=== PATIENT | female | born 1995 | race African-American/Black ===

== ENCOUNTER 2020-03-09 18:10 | Emergency (ER) | payer MEDICAID ==
[~2020-03-09] VITALS: Ht 162.6 cm; Wt 97.5 kg
[2020-03-09 18:37] VITALS: BP 108/74
--- NOTE | 2020-03-09 18:40 | NUR ---
ED Nurse Note: Patient walked in to Er c/o left earache with discharge for 1 week. AAO x4, VSS aty this time.
--- NOTE | 2020-03-09 18:45 | Emergency Room Report ---
History of Present Illness General Chief Complaint: Earache Source: Patient Present Illness HPI 24-year-old female presents to the emergency department complaining of 9 out of 10 severity pain and tenderness to the left ear as well as the outer left ear in addition to discharge x1 week. Patient reports her symptoms have been progressive. Patient denies tinnitus. She denies fevers or chills. She reports using [id number] drops with no relief. Patient denies neck pain/stiffness. Patient denies tenderness to the scalp behind the ear or to the jaw in front of the affected ear. She reports history of asthma. No other aggravating or relieving factors at this time. She does report some Q-tip use. Allergies: Coded Allergies: No Known Allergies (Unverified , 03/09/20) COVID-19 Screening Contact w/high risk pt: No Experienced COVID-19 symptoms?: No COVID-19 Testing performed [employer]: No Patient History Past Medical History: see triage record Past Surgical History: none Pertinent Family History: none Now: No Reviewed Nursing Documentation: PMH: Agreed; PSxH: Agreed Nursing Documentation-PMH Past Medical History: No History, Except For Hx Asthma: Yes Review of Systems All Other Systems: negative except mentioned in HPI Physical Exam Vital Signs Date Time Temp Pulse Resp B/P (MAP) Pulse Ox O2 Delivery O2 Flow Rate FiO2 03/09/20 18:19 98.2 81 17 108/74 (85) 99 Room Air Sp02 EP Interpretation: reviewed, normal General Appearance: no apparent distress, alert, GCS 15, non-toxic Head: normocephalic, atraumatic Eyes: bilateral eye normal inspection, bilateral eye PERRL ENT: hearing grossly normal, normal voice, other - Left canal is macerated with white discharge and swelling. There is tenderness to the tragus and the external auricle of the ear. The tympanic membrane is within normal limits. The right ear canal and tympanic membrane are within normal limits. No evidence of mastoiditis. Neck: full range of motion, no meningismus Respiratory: chest non-tender, lungs clear, normal breath sounds, no wheezing, speaking full sentences Cardiovascular #1: regular rate, rhythm Gastrointestinal: non tender, soft Musculoskeletal: normal range of motion, gait/station normal, non-tender Neurologic: alert, motor strength/tone normal, oriented x3, sensory intact, responsive, speech normal Psychiatric: judgement/insight normal Skin: no rash Lymphatic: no adenopathy Medical Decision Making PA Attestation Dr. Samuel is my supervising Physician whom patient management has been discussed with. Diagnostic Impression: Primary Impression: Otitis externa Qualified Codes: H60.332 - Swimmer's ear, left ear ER Course 24-year-old female presents to the emergency department complaining of 9 out of 10 severity pain and tenderness to the left ear as well as the outer left ear in addition to discharge x1 week. Patient reports her symptoms have been progressive. Patient denies tinnitus. She denies fevers or chills. She re ports using [id number] drops with no relief. Patient denies neck pain/stiffness. Patient denies tenderness to the scalp behind the ear or to the jaw in front of the affected ear. She reports history of asthma. No other aggravating or relieving factors at this time. She does report some Q-tip use. Ddx considered but are not limited to OM, OE, mastoiditis, TM perforation, FB Vital signs: are WNL, pt. is afebrile H&PE are most consistent with otitis externa ORDERS: none required at this time, the diagnosis is clinical ED INTERVENTIONS: None required at this time. DISCHARGE: At this time pt. is stable for d/c to home. With Otic ABX. Will provide printed patient care instructions, and any necessary prescriptions. Care plan and follow up instructions have been discussed with the patient prior to discharge. Last Vital Signs Date Time Temp Pulse Resp B/P (MAP) Pulse Ox O2 Delivery O2 Flow Rate FiO2 03/09/20 18:37 98.2 17 108/74 99 Room Air 03/09/20 18:19 81 Status: improved Disposition: HOME, SELF-CARE Condition: Stable Patient Instructions: Otitis Externa, [id number] Additional Instructions: Take medications as directed. Follow up with a Primary Care Provider in 3-5 days, even if your symptoms have resolved. --Please review list of primary care clinics, if you do not already have a primary care provider Return sooner to ED if new symptoms occur, or current symptoms become worse. Do not drink alcohol, drive, or operate heavy machinery while taking Tylenol # 3 as this may cause drowsiness. - Please note that this Emergency Department Report was dictated using [employer] c[employer] helper technology software, occasionally this can lead to erroneous entry secondary to interpretation by the dictation equipment. Reta Lenz Mar 09, 2020 18:45
[2020-03-09] MEDS ORDERED: ACETAMINOPHEN-1 EAC1 ORAL (18:49)
[2020-03-09] MEDS ORDERED: CIPROFLOX-DEXA7.5 ML OT (18:49)
[2020-03-09 19:06] VITALS: BP 108/74
--- NOTE | 2020-03-09 19:07 | NUR ---
ED Nurse Note: Pt cleared by health care Provider for discharge. DC instructions/prescription was given and explained to pt and verbalized understanding of teachings. All medical deviecs such as ID band removed. Pt is AAO x4, ambulatory and left with all personal belongings.
== END 2020-03-09 19:07 | disposition home or self-care (01) ==
LOC: EMR 18:45
DX: H60.332 Swimmer's ear, left ear (principal)
CPT/HCPCS: 99281